=== PATIENT | male | born 1970 | race African-American/Black ===

== ENCOUNTER 2019-09-29 12:07 | Emergency (ER) | payer OTHER ==
[~2019-09-29] VITALS: Ht 190.5 cm; Wt 103.4 kg
[~2019-09-29 12:07] MED LIST: MEDROL DOSPAK21 TAB PO; NORCO 5-325 TA1 EACH PO; NORFLEX100 MG PO
[2019-09-29] MEDS ORDERED: CYCLOBENZAPRINE5 MG PO (13:18)
[2019-09-29] MEDS ORDERED: NORCO 5-325 TA1 EAC1 PO (13:18)
[2019-09-29 13:30] VITALS: BP 118/72
== END 2019-09-29 13:31 | disposition home or self-care (01) ==
LOC: ER 12:07
DX: S06.0X0A Concussion without loss of consciousness, initial encounter (principal); M25.562 Pain in left knee; M79.632 Pain in left forearm; M54.5 Low back pain; Z79.899 Other long term (current) drug therapy; V43.52XA Car driver injured in collision with other type car in traffic accident, initial encounter; Y93.89 Activity, other specified; Y92.410 Unspecified street and highway as the place of occurrence of the external cause; Y99.8 Other external cause status

== ENCOUNTER 2021-01-16 13:44 | Emergency (ER) | payer OTHER ==
[~2021-01-16] VITALS: Ht 190.5 cm; Wt 102.1 kg
[~2021-01-16 13:44] MED LIST changes: +CYCLOBENZAPRINE5 MG PO; +NORCO 5-325 TA1 EAC1 PO
[2021-01-16] MEDS ORDERED: ZANAFLEX4 MG PO (15:21)
[2021-01-16] MEDS ORDERED: MEDROLDOSEPACK PO (15:21)
[2021-01-16] MEDS ORDERED: MOBIC7.5 MG PO (15:21)
[2021-01-16 15:56] VITALS: BP 121/64
== END 2021-01-16 15:59 | disposition home or self-care (01) ==
LOC: ER 13:44
DX: M54.31 Sciatica, right side (principal); Z79.891 Long term (current) use of opiate analgesic; Z79.899 Other long term (current) drug therapy